=== PATIENT | male | born 1950 | race African-American/Black ===

== ENCOUNTER 2020-06-07 19:51 | IRF | payer MEDICARE, SELFPAY ==
--- NOTE | 2020-06-07 19:47 | ADMGEN ---
This patient, Mikal Francois, was admitted to [facility] Room 222-02 at 1920. Patient/family oriented to hospital policies and general routines including ID bracelet, bed and alarms, visiting hours, pain management, procedures, bathroom and other care routines, personal items, smoking policy, room service/diet, and visiting hours. Information on how to activate the Rapid Response Team has been discussed. Patient/Family are encouraged to report perceived risks to care and to ask questions if they do not understand what they are told or what they should do.
[2020-06-07 20:03] VITALS: BMI 27.7
[2020-06-07 20:23] VITALS: BP 148/81; PULSE 76; RESP 20; TEMP 36.4; O2SAT 100
[2020-06-07 21:52] LABS: Glucose Point of Care 163 (65-105)
[2020-06-07 22:19] VITALS: BMI 27.6
[2020-06-08 05:22] VITALS: BP 168/80; PULSE 59; RESP 18; TEMP 36; O2SAT 100
[2020-06-08 05:37] LABS: Hemoglobin A1C 5.6 % (<5.7)
[2020-06-08 05:39] LABS: Anion Gap 6 mmol/L (8-16); Blood Urea Nitrogen 15 mg/dL (9-20); Calcium 9.3 mg/dL (8.4-10.2); Carbon Dioxide 24 mmol/L (22-30); Chloride 108 mmol/L (98-107); Cholesterol 173 mg/dL (0-200); Estimated CRCL calculation 64 ml/min; Estimated Glomerular Filt Rate > 60; Glucose 114 mg/dL (75-110); HDL Direct 33 mg/dL; Sodium 138 mmol/L (137-145); Triglycerides 118 mg/dL (<150)
[2020-06-08 05:50] LABS: LDL Cholesterol Direct 102 mg/dL
[2020-06-08 06:30] LABS: Basophils Percent Auto 0.5 % (0.2-1.2); Eosinophils Absolute Auto 0.3 K/mm3 (0-0.3); Eosinophils Percent Auto 4.1 % (0-4.4); Hematocrit 38.3 % (42.0-52.0); Hemoglobin 13.2 g/dL (14.0-18.0); Immature Granulocyte Absolute 0.07 K/mm3 (0.00-0.031); Lymphocytes Absolute Auto 1.25 K/mm3 (0.9-3.2); Mean Corpuscular HGB Conc 34.5 g/dl (32-36); Mean Corpuscular Hemoglobin 32.5 pg (26-34); Mean Corpuscular Volume 94.3 fl (80-100); Mean Platelet Volume 12.1 fl (7.4-10.4); Monocytes Absolute Auto 0.8 K/mm3 (0.1-0.6); Monocytes Percent Auto 11.4 % (2.6-8.5); Neutrophils Absolute Auto 4.8 K/mm3 (1.3-6.7); Platelet Count Result 190 k/mm3 (150-375); Red Blood Count 4.06 M/mm3 (4.6-6.20); Red Cell Distribution Width 11.8 % (11.5-14.5); White Blood Count 7.3 K/mm3 (4.5-10.0)
[2020-06-08 06:56] LABS: Glucose Point of Care 113 (65-105)
[2020-06-08 09:28] VITALS: PULSE 68
[2020-06-08] MEDS: ENOXAPARIN 40 MG/0.4 ML SYRINGE SUB-Q (09:28)
[2020-06-08] MEDS: CLOPIDOGREL BISULFATE 75 MG TABLET PO (09:28)
[2020-06-08] MEDS: NEBIVOLOL HCL 5 MG TABLET 10 MG PO (09:28)
[2020-06-08] MEDS: ASPIRIN 325 MG TABLET PO (09:28)
[2020-06-08] MEDS: FINASTERIDE 5 MG TABLET PO (09:35)
[2020-06-08] MEDS: amLODIPine BESYLATE 5 MG TABLET PO (09:35)
[2020-06-08 11:23] VITALS: BMI 27.6
[2020-06-08 12:01] LABS: Glucose Point of Care 141 (65-105)
--- NOTE | 2020-06-08 13:32 | WPDREHABHP ---
H&P: HPI History of Present Illness Date/Time: 06/08/20 13:32 Chief Complaint: Left medial pontine infarct Narrative: this is a 70-year-old male with past medical history significant for cataracts, treated hepatitis-C, prostate cancer, hypertension, diabetes mellitus type 2 presented to the emergency room at [facility] on 06/05/2020 with sudden onset of right leg weakness and bladder incontinence. CT of the head was negative for acute intracranial pathology the patient presented out of the window for tPA. NIH SS was 3 so he was not a thrombectomy candidate. MRI of the brain demonstrated a left medial pontine infarct. Hospital course patient had elevated liver enzymes, hypertension and diabetes. The elevated liver enzymes are being monitored and patient has a GI outpatient referral with Dr Andrea Parker. antihypertensives were held to allow for permissive hypertension. Diabetes was treated with a sliding scale insulin and change to dose of Januvia. Physical exam revealed right hemiplegia right motor apraxia dysarthria right facial droop. Patient was started on aspirin and Plavix. Statin was not initiated due to liver disease/ transaminitis. patient will remain on aspirin and Plavix for 3 weeks and then transition to just aspirin. COVID the patient has not traveled outside the [place] or had contact with someone who is ill that has traveled outside the [place] in the past 21 days patient has not traveled to an area of the [place] that is experiencing known transmission of the Coronavirus and has not had close personal contact with anyone that has come into contact with COVID. The patient does not have a fever. The patient is not experiencing lower respiratory illness symptoms. Therapy was initiated at the acute care facility and the patient transferred to us from [facility] on 06/07/2020 His PCP is Faisal Stephenson HISTORY OF PRESENT ILLNESS: The patient's primary rehab impairment category is 0 1-stroke The etiologic diagnosis is left medial pontine infarct I saw this patient [id number] on 06/08/2020 Therapy was initiated at the acute care facility and the patient transferred to us from [facility] on 06/07/20] FALLS OR SURGERIES: The patient has had no major surgeries in the 100 days prior to admission. They had no falls in the past year. They had no falls with injury in the past year. PRIOR LEVEL OF FUNCTION: Eating was INDEPENDENT Oral Care was INDEPENDENT Toileting Hygiene was INDEPENDENT Shower/Bathing was INDEPENDENT Upper Body Dressing was INDEPENDENT Lower Body Dressing was INDEPENDENT Donning/Lodge Pole Footwear was INDEPENDENT Rolling Left and Right was INDEPENDENT Sit to Lying was INDEPENDENT Lying to Sitting was INDEPENDENT Sit to Stand was INDEPENDENT Bed to Chair Transfers was INDEPENDENT Toilet Transfers was INDEPENDENT Walking was INDEPENDENT >500 feet with NO DEVICE Wheelchair Mobility was NOT APPLICABLE PRIOR TO ADMISSION Stairs were INDEPENDENT CURRENT LEVEL OF FUNCTION: Eating was independent Oral Care was partial to moderate assist Toileting Hygiene was partial to moderate assist Shower/Bathing was partial to moderate assist Upper Body Dressing was partial to moderate assist Lower Body Dressing was partial to moderate assist Donning/Lodge [place] Footwear was partial to moderate assist Rolling Left and Right was partial to moderate assist Sit to Lying was partial to moderate assist Lying to Sitting was partial to moderate assistance Sit to Stand was partial to moderate assistance Bed to Chair Transfers were partial to moderate assistance Toilet Transfers were partial to moderate assistance Walking was 100 ft with a cane at partial to moderate assistance Wheelchair Mobility was not tested Stairs were not tested GOALS: Our therapists will evaluate the patient and establish the goals. However, upon pre-admission screening, the
[2020-06-08 14:00] VITALS: BP 158/76; PULSE 74; RESP 20; TEMP 36.6; O2SAT 99
--- NOTE | 2020-06-08 15:42 | RPD ---
INDIVIDUALIZED PLAN OF CARE FOR Lico Francois Brief Synthesis of Pre-Admission Screen, Post-Admission Evaluation and Therapy Evaluations: The patient presents to rehab with a left medial pontine infarct. Comorbidities include: Hypertension, transaminitis, right-sided weakness, impaired coordination, impaired balance, diabetes mellitus with hyperglycemia. The patient requires physician services for medical oversight, management of medical complications in the setting of present comorbidities, and coordination of care. Emotional needs will be monitored as depression is a common sequelae of stroke. The patient needs physician monitoring and treatment of transaminitis, hypertension, monitoring for adverse reactions to new medications, and monitoring of infection. The patient requires nursing services for frequent neuro checks, anticoagulation therapy, medication management and education, pressure relief and skin care management, monitoring of labs, diabetes management and education, and fall/safety precautions. Deficits include:ADLs, Balance, Endurance, Family Training/Education, Mobility, Pain Management, ROM, Safety, Strength,Transfers, Speech [employer] Lab Technician/Case Management for: Discharge Planning and Patient/Family Counseling Physical Therapy: 5 days per week for 60 minutes for the anticipated length of stay. Treatments may include: Therapeutic Exercise, Gait Training, Neuromuscular Re-education, Transfer Training, Community Reintegration, Bed Mobility, Patient/Family Education, Wheelchair Mobility Group Therapy/Concurrent Therapy Rationales: -Improve attention span during functional activities in a distracted environment. -Enhance problem solving and/or adequate judgment skills during functional activities in a distracted environment. -Promote increased safety awareness in a distracted environment to reduce fall risk with functional tasks, transfers, and ambulation to allow a more safe, self-sufficient return to the home environment. -Improve dynamic balance skills to promote safety and independence with functional activities in a distracted environment for maximum gain. Occupational Therapy: 5 days per week for 60 minutes for the anticipated length of stay. Treatments may include: Therapeutic Exercise, Therapeutic Activity, Cognitive Training, Self-Care Transfer Training, Community Reintegration, Home Management, Patient/Family Education, Wheelchair Mobility Training, Energy Conservation Training Group Therapy/Concurrent Therapy Rationales: -Allow therapist to observe and teach generalization and carry-over of skills learned in individual therapy. -Enhance problem solving and sequencing skills during therapeutic activities in a distracted environment. -Promote increased safety awareness in a realistic setting to reduce fall risk with functional tasks due to visual and verbal distractions. -Increase functional level with ADLs, ADL transfers and use of adaptive equipment through therapeutic activities with others while promoting safety to allow a more safe, self-sufficient return home. Speech Therapy: 5 days per week for 60 minutes for the anticipated length of stay. Treatments may include: Dysphasia Therapy, Speech/Language/Communication Therapy, Cognitive Training, Patient/Family Education Group Therapy/Concurrent Therapy - Rationale: -Allow therapist to observe and teach generalization and carry-over of skills learned in individual therapy. -Improve comprehension skills with complex or abstract ideas through discussion in a realistic setting. -Enhance problem solving skills with complex issues during activities in a distracted environment. -Promote increased memory skills and concentration in a distracted environment for a safe transition home. -Improve attention and focus with language/communication skills in a realistic and supportive therapeutic setting. -Allow for practice of expression of basic needs and ideas through functional activities with others. Medic
[2020-06-08 16:59] LABS: Glucose Point of Care 163 (65-105)
[2020-06-08 20:00] VITALS: PULSE 74; RESP 20; O2SAT 99
[2020-06-08] MEDS: INSULIN ASPART (*BKC) 100 UNITS/ML SUB-Q (21:02)
[2020-06-08 21:04] LABS: Glucose Point of Care 237 (65-105)
[2020-06-08 22:00] VITALS: BP 142/70; PULSE 72; RESP 16; TEMP 36.2; O2SAT 99
[2020-06-09 04:56] VITALS: BP 135/59; PULSE 58; RESP 16; TEMP 36.1; O2SAT 100
[2020-06-09 06:46] LABS: Glucose Point of Care 123 (65-105)
[2020-06-09 09:16] VITALS: PULSE 58
[2020-06-09] MEDS: NEBIVOLOL HCL 5 MG TABLET 10 MG PO (09:16)
[2020-06-09] MEDS: ASPIRIN 325 MG TABLET PO (09:16)
[2020-06-09] MEDS: CLOPIDOGREL BISULFATE 75 MG TABLET PO (09:16)
[2020-06-09] MEDS: amLODIPine BESYLATE 5 MG TABLET PO (09:16)
[2020-06-09] MEDS: ENOXAPARIN 40 MG/0.4 ML SYRINGE SUB-Q (09:16)
[2020-06-09] MEDS: FINASTERIDE 5 MG TABLET PO (09:16)
--- NOTE | 2020-06-09 09:55 | WPDNEURORHBP ---
Subjective Date/time seen: 06/09/20 09:55 Interval history: This is a 70-year-old gentleman with past medical history significant for cataracts, treated hepatitis C, prostate cancer, hypertension, diabetes mellitus type 2 who presented to the emergency room in [facility] on 06/05/2020 with onset of right-sided weakness. MRI of the brain demonstrated a left. GI outpatient referral with Dr. Andrea Parker is to be arranged after discharge. permissive hypertension was allowed during the early stages of stroke. Patient is been newly diagnosed with diabetes. Patient will remain on Plavix and aspirin for 3 weeks and then transition to aspirin alone. Patient voices no complaints. Review of Systems Review of Systems: All systems reviewed & are unremarkable except as noted in HPI and below Functional Status Ambulation Ability Ability to Ambulate 10 Feet: Moderate Assistance X 1 Ability to Ambulate 50 Feet With 2 Turns: Minimum Assistance X 1 Ability to Ambulate 150 Feet: Minimum Assistance X 1 Ambulation Assistive Devices: Cane and Walker, Wheeled Transfers Ability Ability to Transfer In/Out of Chair: Moderate Assistance X 1 Exam Narrative: Exam Narrative: Facial asymmetry is noted extraocular muscles are intact. Neck is supple. Speech is dysarthric. Heart rate and rhythm is regular. Lungs are clear to auscultation. Abdomen is soft nontender. Left upper and left lower extremity strength are 5/5 right upper and right lower extremity strength reveal motor apraxia patient demonstrates cognitive deficits in memory and problem solving. Patient is at Min assistance with transfers. Gait is moderate assistance. Objective Data Vital Signs Vital Signs: Vital Signs - 24 hr 06/08/20 14:00 06/08/20 20:00 06/08/20 22:00 Temperature 36.6 C 36.2 C L Pulse Rate 74 74 72 Respiratory Rate 20 20 16 Blood Pressure 158/76 H 142/70 H Pulse Oximetry 99 99 99 06/09/20 04:56 06/09/20 09:16 Temperature 36.1 C L Pulse Rate 58 L 58 L Respiratory Rate 16 Blood Pressure 135/59 L Pulse Oximetry 100 Intake/Output Intake/Output: Intake & Output 06/06/20 06/07/20 06/08/20 06/09/20 23:59 23:59 23:59 23:59 Intake Total 600 240 Balance 600 240 Meds/Results Medications: Active Medications Generic Name Dose Route Start Last Admin Trade Name Freq PRN Reason Stop Dose Admin Amlodipine Besylate 5 mg 06/08/20 09:00 06/09/20 09:16 Amlodipine Besylate 5 Mg Tablet PO 5 mg DAILY XI Administration Aspirin 325 mg 06/08/20 09:00 06/09/20 09:16 Aspirin 325 Mg Tablet PO 325 mg DAILY XI Administration Clopidogrel Bisulfate 75 mg 06/08/20 09:00 06/09/20 09:16 Clopidogrel Bisulfate 75 Mg Tablet PO 75 mg DAILY XI Administration Dextrose 12.5 gm 06/07/20 20:15 Dextrose 50% 25 Gm/50 Ml Syringe IV PUSH PRN PRN Hypoglycemia Protocol Enoxaparin Sodium 40 mg 06/08/20 09:00 06/09/20 09:16 Enoxaparin 40 Mg/0.4 Ml Syringe SUB-Q 40 mg DAILY XI Administration Finasteride 5 mg 06/08/20 09:00 06/09/20 09:16 Finasteride 5 Mg Tablet PO 5 mg DAILY IX Administration Glucagon 1 mg 06/07/20 20:15 Glucagon For Inj 1 Mg Vial IM PRN PRN Hypoglycemia Protocol Glucose 15 gm 06/07/20 20:15 Glucose Oral Gel 15 Gm Of Glucse In 37.5 Gm Tube PO PRN PRN Hypoglycemia Protocol Dextrose 1,000 mls @ 100 mls/hr 06/07/20 20:15 Dextrose 5% 1,000 Ml IVPB PRN PRN Hypoglycemia Protocol Insulin Aspart 2 - 5 units 06/09/20 08:00 06/09/20 07:33 Insulin Aspart (*Bkc) 100 Units/Ml SUB-Q Not Given TIDWM XI Protocol Nebivolol 10 mg 06/08/20 09:00 06/09/20 09:16 Nebivolol Hcl 5 Mg Tablet PO 10 mg DAILY XI Administration Sitagliptin Phosphate 50 mg 06/08/20 09:00 06/09/20 09:16 Sitagliptin 50 Mg Tablet PO 50 mg DAILY XI Administration Labs Labs: Labora
[2020-06-09 11:11] LABS: Alanine Aminotransferase 313 U/L (4-50); Albumin Level 3.5 g/dL (3.5-5.1); Alkaline Phosphatase 94 U/L (38-126); Anion Gap 5 mmol/L (8-16); Aspartate Amino Transferase 276 U/L (17-59); Bilirubin,Total 0.6 mg/dL (0.2-1.3); Blood Urea Nitrogen 15 mg/dL (9-20); Carbon Dioxide 22 mmol/L (22-30); Chloride 109 mmol/L (98-107); Estimated CRCL calculation 64 ml/min; Estimated Glomerular Filt Rate > 60; Glucose 127 mg/dL (75-110); Potassium 3.9 mmol/L (3.4-5.0); Sodium 136 mmol/L (137-145)
[2020-06-09 12:08] LABS: Glucose Point of Care 117 (65-105)
[2020-06-09 14:00] VITALS: BP 140/67; PULSE 69; RESP 18; TEMP 37.4; O2SAT 100
[2020-06-09 16:51] LABS: Glucose Point of Care 125 (65-105)
[2020-06-09 20:00] VITALS: O2SAT 100
[2020-06-09 21:21] VITALS: BP 139/63; PULSE 62; RESP 18; TEMP 36.1; O2SAT 100
[2020-06-09 21:55] LABS: Glucose Point of Care 121 (65-105)
[2020-06-10 05:42] VITALS: BP 148/79; PULSE 63; RESP 18; TEMP 36.2; O2SAT 100
[2020-06-10 06:41] LABS: Glucose Point of Care 107 (65-105)
[2020-06-10 08:19] VITALS: PULSE 63
[2020-06-10] MEDS: amLODIPine BESYLATE 5 MG TABLET PO (08:19)
[2020-06-10] MEDS: FINASTERIDE 5 MG TABLET PO (08:19)
[2020-06-10] MEDS: NEBIVOLOL HCL 5 MG TABLET 10 MG PO (08:19)
[2020-06-10] MEDS: ASPIRIN 325 MG TABLET PO (08:20)
[2020-06-10] MEDS: ENOXAPARIN 40 MG/0.4 ML SYRINGE SUB-Q (08:20)
[2020-06-10] MEDS: CLOPIDOGREL BISULFATE 75 MG TABLET PO (08:20)
--- NOTE | 2020-06-10 08:26 | WPDNEURORHBP ---
Subjective Date/time seen: 06/10/20 08:26 Interval history: This is a 70-year-old gentleman with past medical history significant for cataracts, treated hepatitis C, prostate cancer, hypertension, diabetes mellitus type 2 who presented to the emergency room in [facility] on 06/05/2020 with onset of right-sided weakness. MRI of the brain demonstrated a left. GI outpatient referral with Dr. Andrea Parker is to be arranged after discharge. permissive hypertension was allowed during the early stages of stroke. Patient is been newly diagnosed with diabetes. Patient will remain on Plavix and aspirin for 3 weeks and then transition to aspirin alone. Patient concerned about diabets. Continue education Review of Systems Review of Systems: All systems reviewed & are unremarkable except as noted in HPI and below Functional Status Ambulation Ability Ability to Ambulate 10 Feet: Minimum Assistance X 1 Ability to Ambulate 50 Feet With 2 Turns: Minimum Assistance X 1 Ability to Ambulate 150 Feet: Minimum Assistance X 1 Ambulation Assistive Devices: Walker, Wheeled Transfers Ability Ability to Transfer In/Out of Chair: Contact Guard Exam Narrative: Exam Narrative: Facial asymmetry is noted extraocular muscles are intact. Neck is supple. Speech is dysarthric. Heart rate and rhythm is regular. Lungs are clear to auscultation. Abdomen is soft nontender. Left upper and left lower extremity strength are 5/5 right upper and right lower extremity strength reveal motor apraxia patient demonstrates cognitive deficits in memory and problem solving. Patient is at Min assistance with transfers. Gait is moderate assistance. Significant motor apraxia noted. Objective Data Vital Signs Vital Signs: Vital Signs - 24 hr 06/09/20 09:16 06/09/20 14:00 06/09/20 20:00 Temperature 37.4 C Pulse Rate 58 L 69 Respiratory Rate 18 Blood Pressure 140/67 Pulse Oximetry 100 100 06/09/20 21:21 06/10/20 05:42 06/10/20 08:19 Temperature 36.1 C L 36.2 C L Pulse Rate 62 63 63 Respiratory Rate 18 18 Blood Pressure 139/63 148/79 H Pulse Oximetry 100 100 Intake/Output Intake/Output: Intake & Output 06/07/20 06/08/20 06/09/20 06/10/20 23:59 23:59 23:59 23:59 Intake Total 600 840 Balance 600 840 Meds/Results Medications: Active Medications Generic Name Dose Route Start Last Admin Trade Name Mukulq PRN Reason Stop Dose Admin Amlodipine Besylate 5 mg 06/08/20 09:00 06/10/20 08:19 Amlodipine Besylate 5 Mg Tablet PO 5 mg DAILY XI Administration Aspirin 325 mg 06/08/20 09:00 06/10/20 08:20 Aspirin 325 Mg Tablet PO 325 mg DAILY XI Administration Clopidogrel Bisulfate 75 mg 06/08/20 09:00 06/10/20 08:20 Clopidogrel Bisulfate 75 Mg Tablet PO 75 mg DAILY XI Administration Dextrose 12.5 gm 06/07/20 20:15 Dextrose 50% 25 Gm/50 Ml Syringe IV PUSH PRN PRN Hypoglycemia Protocol Enoxaparin Sodium 40 mg 06/08/20 09:00 06/10/20 08:20 Enoxaparin 40 Mg/0.4 Ml Syringe SUB-Q 40 mg DAILY XI Administration Finasteride 5 mg 06/08/20 09:00 06/10/20 08:19 Finasteride 5 Mg Tablet PO 5 mg DAILY XI Administration Glucagon 1 mg 06/07/20 20:15 Glucagon For Inj 1 Mg Vial IM PRN PRN Hypoglycemia Protocol Glucose 15 gm 06/07/20 20:15 Glucose Oral Gel 15 Gm Of Glucse In 37.5 Gm Tube PO PRN PRN Hypoglycemia Protocol Dextrose 1,000 mls @ 100 mls/hr 06/07/20 20:15 Dextrose 5% 1,000 Ml IVPB PRN PRN Hypoglycemia Protocol Insulin Aspart 2 - 5 units 06/09/20 08:00 06/10/20 08:21 Insulin Aspart (*Bkc) 100 Units/Ml SUB-Q Not Given TIDWM XI Protocol Nebivolol 10 mg 06/08/20 09:00 06/10/20 08:19 Nebivolol Hcl 5 Mg Tablet PO 10 mg DAILY XI Administration Sitagliptin Phosphate 50 mg 06/08/20 09:00 06/10/20 08:20 Sitagliptin 50 Mg Tablet PO 50 mg
[2020-06-10 12:00] LABS: Glucose Point of Care 94 (65-105)
[2020-06-10 14:00] VITALS: BP 120/63; PULSE 74; RESP 18; TEMP 35.8; O2SAT 100
[2020-06-10 17:09] LABS: Glucose Point of Care 124 (65-105)
[2020-06-10 20:16] LABS: Glucose Point of Care 157 (65-105)
[2020-06-10 22:00] VITALS: BP 134/64; PULSE 68; RESP 16; TEMP 36.3; O2SAT 99
[2020-06-11 06:00] VITALS: BP 147/68; PULSE 58; RESP 16; TEMP 36.1; O2SAT 100
[2020-06-11 06:17] LABS: Glucose Point of Care 110 (65-105)
[2020-06-11] MEDS: ASPIRIN 325 MG TABLET PO (08:49)
[2020-06-11] MEDS: amLODIPine BESYLATE 5 MG TABLET PO (08:49)
[2020-06-11 08:50] VITALS: PULSE 68
[2020-06-11] MEDS: CLOPIDOGREL BISULFATE 75 MG TABLET PO (08:50)
[2020-06-11] MEDS: NEBIVOLOL HCL 5 MG TABLET 10 MG PO (08:50)
[2020-06-11] MEDS: FINASTERIDE 5 MG TABLET PO (08:50)
[2020-06-11] MEDS: ENOXAPARIN 40 MG/0.4 ML SYRINGE SUB-Q (08:51)
[2020-06-11 09:05] VITALS: O2SAT 95
--- NOTE | 2020-06-11 10:59 | WPDNEURORHBP ---
Subjective Date/time seen: 06/11/20 10:59 Interval history: This is a 70-year-old gentleman with past medical history significant for cataracts, treated hepatitis C, prostate cancer, hypertension, diabetes mellitus type 2 who presented to the emergency room in [facility] on 06/05/2020 with onset of right-sided weakness. MRI of the brain demonstrated a left. GI outpatient referral with Dr. Andrea Parker is to be arranged after discharge. permissive hypertension was allowed during the early stages of stroke. Patient is been newly diagnosed with diabetes. Patient will remain on Plavix and aspirin for 3 weeks and then transition to aspirin alone. Patient concerned about diabetes. Continue education Review of Systems Review of Systems: All systems reviewed & are unremarkable except as noted in HPI and below Functional Status Ambulation Ability Ability to Ambulate 10 Feet: Contact Guard Ability to Ambulate 50 Feet With 2 Turns: Contact Guard Ability to Ambulate 150 Feet: Contact Guard Ambulation Assistive Devices: Walker, Wheeled Transfers Ability Ability to Transfer In/Out of Chair: Minimum Assistance X 1 Exam Narrative: Exam Narrative: Facial asymmetry is noted extraocular muscles are intact. Neck is supple. Speech is dysarthric. Heart rate and rhythm is regular. Lungs are clear to auscultation. Abdomen is soft nontender. Left upper and left lower extremity strength are 5/5 right upper and right lower extremity strength reveal motor apraxia patient demonstrates cognitive deficits in memory and problem solving. Patient is at Min assistance with transfers. Gait is contact guard assistance. Patient hyperextends the L knee. Poor control of quads when walking. Significant motor apraxia noted. Objective Data Vital Signs Vital Signs: Vital Signs - 24 hr 06/10/20 14:00 06/10/20 22:00 06/11/20 06:00 Temperature 35.8 C L 36.3 C L 36.1 C L Pulse Rate 74 68 58 L Respiratory Rate 18 16 16 Blood Pressure 120/63 134/64 147/68 H Pulse Oximetry 100 99 100 06/11/20 08:50 Temperature Pulse Rate 68 Respiratory Rate Blood Pressure Pulse Oximetry Intake/Output Intake/Output: Intake & Output 06/08/20 06/09/20 06/10/20 06/11/20 23:59 23:59 23:59 23:59 Intake Total 361 986 4896 Balance 352 341 5008 Meds/Results Medications: Active Medications Generic Name Dose Route Start Last Admin Trade Name Mukulq PRN Reason Stop Dose Admin Amlodipine Besylate 5 mg 06/08/20 09:00 06/11/20 08:49 Amlodipine Besylate 5 Mg Tablet PO 5 mg DAILY XI Administration Aspirin 325 mg 06/08/20 09:00 06/11/20 08:49 Aspirin 325 Mg Tablet PO 325 mg DAILY XI Administration Clopidogrel Bisulfate 75 mg 06/08/20 09:00 06/11/20 08:50 Clopidogrel Bisulfate 75 Mg Tablet PO 75 mg DAILY XI Administration Dextrose 12.5 gm 06/07/20 20:15 Dextrose 50% 25 Gm/50 Ml Syringe IV PUSH PRN PRN Hypoglycemia Protocol Enoxaparin Sodium 40 mg 06/08/20 09:00 06/11/20 08:51 Enoxaparin 40 Mg/0.4 Ml Syringe SUB-Q 40 mg DAILY XI Administration Finasteride 5 mg 06/08/20 09:00 06/11/20 08:50 Finasteride 5 Mg Tablet PO 5 mg DAILY XI Administration Glucagon 1 mg 06/07/20 20:15 Glucagon For Inj 1 Mg Vial IM PRN PRN Hypoglycemia Protocol Glucose 15 gm 06/07/20 20:15 Glucose Oral Gel 15 Gm Of Glucse In 37.5 Gm Tube PO PRN PRN Hypoglycemia Protocol Dextrose 1,000 mls @ 100 mls/hr 06/07/20 20:15 Dextrose 5% 1,000 Ml IVPB PRN PRN Hypoglycemia Protocol Insulin Aspart 2 - 5 units 06/09/20 08:00 06/11/20 08:50 Insulin Aspart (*Bkc) 100 Units/Ml SUB-Q Not Given TIDWM XI Protocol Nebivolol 10 mg 06/08/20 09:00 06/11/20 08:50 Nebivolol Hcl 5 Mg Tablet PO 10 mg DAILY XI Administration Sitagliptin Phosphate 50 mg 06/08/20 09:00 06/11/20 08:50 Sitagliptin 50 Mg
[2020-06-11 11:48] LABS: Glucose Point of Care 95 (65-105)
[2020-06-11 14:00] VITALS: BP 128/61; PULSE 72; RESP 18; TEMP 36.1; O2SAT 99
[2020-06-11 17:16] LABS: Glucose Point of Care 109 (65-105)
[2020-06-11 20:15] VITALS: PULSE 63; RESP 16; O2SAT 100
[2020-06-11 21:08] LABS: Glucose Point of Care 149 (65-105)
[2020-06-11 22:00] VITALS: BP 147/71; PULSE 63; RESP 16; TEMP 36.1; O2SAT 100
[2020-06-12 06:00] VITALS: BP 144/70; PULSE 56; RESP 16; TEMP 36; O2SAT 100
[2020-06-12 06:00] LABS: Glucose Point of Care 99 (65-105)
[2020-06-12 09:20] VITALS: PULSE 56
[2020-06-12] MEDS: amLODIPine BESYLATE 5 MG TABLET PO (09:20)
[2020-06-12] MEDS: FINASTERIDE 5 MG TABLET PO (09:20)
[2020-06-12] MEDS: CLOPIDOGREL BISULFATE 75 MG TABLET PO (09:20)
[2020-06-12] MEDS: NEBIVOLOL HCL 5 MG TABLET 10 MG PO (09:20)
[2020-06-12] MEDS: ASPIRIN 325 MG TABLET PO (09:20)
[2020-06-12] MEDS: ENOXAPARIN 40 MG/0.4 ML SYRINGE SUB-Q (09:21)
[2020-06-12 12:03] LABS: Glucose Point of Care 91 (65-105)
--- NOTE | 2020-06-12 12:53 | WPDNEURORHBP ---
Subjective Date/time seen: 06/12/20 12:53 Interval history: This is a 70-year-old gentleman with past medical history significant for cataracts, treated hepatitis C, prostate cancer, hypertension, diabetes mellitus type 2 who presented to the emergency room in [facility] on 06/05/2020 with onset of right-sided weakness. MRI of the brain demonstrated a left. GI outpatient referral with Dr. Andrea Parker is to be arranged after discharge due to transaminitis.Permissive hypertension will be allowed during the early stages of stroke. Patient is a newly diagnosed diabetic. Diabetic training will be ongoing Patient will remain on Plavix and aspirin for 3 weeks and then transition to aspirin alone. Patient voices no complaint. Patient is becoming more aware of his limitation Review of Systems Review of Systems: All systems reviewed & are unremarkable except as noted in HPI and below Functional Status Ambulation Ability Ability to Ambulate 10 Feet: Contact Guard Ability to Ambulate 50 Feet With 2 Turns: Contact Guard Ability to Ambulate 150 Feet: Contact Guard Ambulation Assistive Devices: Walker, Wheeled Transfers Ability Ability to Transfer In/Out of Chair: Contact Guard Exam Narrative: Exam Narrative: Facial asymmetry is noted extraocular muscles are intact. Neck is supple. Speech is dysarthric. Heart rate and rhythm is regular. Lungs are clear to auscultation. Abdomen is soft nontender. Left upper and left lower extremity strength are 4/5 right upper and right lower extremity strength reveal motor apraxia patient demonstrates cognitive deficits in memory and problem solving. Patient is at Min assistance with transfers. Gait is contact guard assistance. Patient hyperextends the L knee. Poor control of quads when walking due to L TKA. Patient with Right hemiplegia 3-4/5 strength throughout. Significant motor apraxia noted. patient is modified independent to standby assistance with bed mobility. Transfers are contact guard assist. Gait is 230 ft with contact guard patient demonstrates left knee hyperextension. Dressing is at contact guard for upper ADLs. Lower extremity ADLs are Min assist. bathing is contact guard assist. Toileting is contact guard to minimal assistance. Speech demonstrates moderate deficits in fluency and reading. With mild to moderate cognitive global deficits. Objective Data Vital Signs Vital Signs: Vital Signs - 24 hr 06/11/20 14:00 06/11/20 20:15 06/11/20 22:00 Temperature 36.1 C L 36.1 C L Pulse Rate 72 63 63 Respiratory Rate 18 16 16 Blood Pressure 128/61 147/71 H Pulse Oximetry 99 100 100 06/12/20 06:00 06/12/20 09:20 Temperature 36.0 C L Pulse Rate 56 L 56 L Respiratory Rate 16 Blood Pressure 144/70 H Pulse Oximetry 100 Intake/Output Intake/Output: Intake & Output 06/09/20 06/10/20 06/11/20 06/12/20 23:59 23:59 23:59 23:59 Intake Total 840 1440 720 240 Balance 840 1440 720 240 Meds/Results Medications: Active Medications Generic Name Dose Route Start Last Admin Trade Name Freq PRN Reason Stop Dose Admin Amlodipine Besylate 5 mg 06/08/20 09:00 06/12/20 09:20 Amlodipine Besylate 5 Mg Tablet PO 5 mg DAILY XI Administration Aspirin 325 mg 06/08/20 09:00 06/12/20 09:20 Aspirin 325 Mg Tablet PO 325 mg DAILY XI Administration Clopidogrel Bisulfate 75 mg 06/08/20 09:00 06/12/20 09:20 Clopidogrel Bisulfate 75 Mg Tablet PO 75 mg DAILY XI Administration Dextrose 12.5 gm 06/07/20 20:15 Dextrose 50% 25 Gm/50 Ml Syringe IV PUSH PRN PRN Hypoglycemia Protocol Enoxaparin Sodium 40 mg 06/08/20 09:00 06/12/20 09:21 Enoxaparin 40 Mg/0.4 Ml Syringe SUB-Q 40 mg DAILY XI Administration Finasteride 5 mg 06/08/20 09:00 06/12/20 09:20 Finasteride 5 Mg Tablet PO 5 mg DAILY XI Administration Glucagon 1 mg 06/07/20 20:15 Glucagon For Inj 1 Mg Vial IM PRN PRN
[2020-06-12 14:00] VITALS: BP 150/69; PULSE 76; RESP 18; TEMP 36.2; O2SAT 100
[2020-06-12 16:53] LABS: Glucose Point of Care 103 (65-105)
[2020-06-12 20:10] VITALS: PULSE 69; RESP 16; O2SAT 100
[2020-06-12 22:00] VITALS: BP 137/64; PULSE 69; RESP 16; TEMP 36.9; O2SAT 100
[2020-06-12 22:03] LABS: Glucose Point of Care 189 (65-105)
[2020-06-13 06:00] VITALS: BP 146/74; PULSE 62; RESP 16; TEMP 36; O2SAT 100
[2020-06-13 06:58] LABS: Glucose Point of Care 107 (65-105)
[2020-06-13 08:38] VITALS: PULSE 62
[2020-06-13] MEDS: ENOXAPARIN 40 MG/0.4 ML SYRINGE SUB-Q (08:38)
[2020-06-13] MEDS: amLODIPine BESYLATE 5 MG TABLET PO (08:38)
[2020-06-13] MEDS: ASPIRIN 325 MG TABLET PO (08:38)
[2020-06-13] MEDS: CLOPIDOGREL BISULFATE 75 MG TABLET PO (08:38)
[2020-06-13] MEDS: NEBIVOLOL HCL 5 MG TABLET 10 MG PO (08:38)
[2020-06-13] MEDS: FINASTERIDE 5 MG TABLET PO (08:38)
--- NOTE | 2020-06-13 09:10 | WPDNEURORHBP ---
Subjective Date/time seen: 06/13/20 09:10 Interval history: This is a 70-year-old gentleman with past medical history significant for cataracts, treated hepatitis C, prostate cancer, hypertension, diabetes mellitus type 2 who presented to the emergency room in [facility] on 06/05/2020 with onset of right-sided weakness. MRI of the brain demonstrated a left. GI outpatient referral with Dr. Andrea Parker is to be arranged after discharge due to transaminitis.Permissive hypertension will be allowed during the early stages of stroke. Patient is a newly diagnosed diabetic. Diabetic training will be ongoing Patient will remain on Plavix and aspirin for 3 weeks and then transition to aspirin alone. Patient voices no complaint. Patient is becoming more aware of his limitation Review of Systems Review of Systems: All systems reviewed & are unremarkable except as noted in HPI and below Functional Status Ambulation Ability Ability to Ambulate 10 Feet: Contact Guard Ability to Ambulate 50 Feet With 2 Turns: Contact Guard Ability to Ambulate 150 Feet: Contact Guard Ambulation Assistive Devices: Walker, Wheeled Transfers Ability Ability to Transfer In/Out of Chair: Contact Guard Exam Narrative: Exam Narrative: Facial asymmetry is noted extraocular muscles are intact. Neck is supple. Speech is dysarthric. Heart rate and rhythm is regular. Lungs are clear to auscultation. Abdomen is soft nontender. Left upper and left lower extremity strength are 4/5 right upper and right lower extremity strength reveal motor apraxia patient demonstrates cognitive deficits in memory and problem solving. Patient is at Min assistance with transfers. Gait is contact guard assistance. Patient hyperextends the L knee. Poor control of quads when walking due to L TKA. Patient with Right hemiplegia 3-4/5 strength throughout. Significant motor apraxia noted. patient is modified independent to standby assistance with bed mobility. Transfers are contact guard assist. Gait is 230 ft with contact guard patient demonstrates left knee hyperextension. Dressing is at contact guard for upper ADLs. Lower extremity ADLs are Min assist. bathing is contact guard assist. Toileting is contact guard to minimal assistance. Speech demonstrates moderate deficits in fluency and reading. With mild to moderate cognitive global deficits. Patient demonstrating more awareness of right hand placement. Patient's overall grasp is limited and showing signs of motor recovery. Motor recovery is improving more to proximal ms. Objective Data Vital Signs Vital Signs: Vital Signs - 24 hr 06/12/20 09:20 06/12/20 14:00 06/12/20 20:10 Temperature 36.2 C L Pulse Rate 56 L 76 69 Respiratory Rate 18 16 Blood Pressure 150/69 H Pulse Oximetry 100 100 06/12/20 22:00 06/13/20 06:00 06/13/20 08:38 Temperature 36.9 C 36.0 C L Pulse Rate 69 62 62 Respiratory Rate 16 16 Blood Pressure 137/64 146/74 H Pulse Oximetry 100 100 Intake/Output Intake/Output: Intake & Output 06/10/20 06/11/20 06/12/20 06/13/20 23:59 23:59 23:59 23:59 Intake Total 1440 720 960 240 Balance 1440 720 960 240 Meds/Results Medications: Active Medications Generic Name Dose Route Start Last Admin Trade Name Freq PRN Reason Stop Dose Admin Amlodipine Besylate 5 mg 06/08/20 09:00 06/13/20 08:38 Amlodipine Besylate 5 Mg Tablet PO 5 mg DAILY XI Administration Aspirin 325 mg 06/08/20 09:00 06/13/20 08:38 Aspirin 325 Mg Tablet PO 325 mg DAILY XI Administration Clopidogrel Bisulfate 75 mg 06/08/20 09:00 06/13/20 08:38 Clopidogrel Bisulfate 75 Mg Tablet PO 75 mg DAILY XI Administration Dextrose 12.5 gm 06/07/20 20:15 Dextrose 50% 25 Gm/50 Ml Syringe IV PUSH PRN PRN Hypoglycemia Protocol Enoxaparin Sodium 40 mg 06/08/20 09:00 06/13/20 08:38 Enoxaparin 40 Mg/0.4 Ml Syringe SUB-Q 40 mg DAILY XI Administra
[2020-06-13 11:55] LABS: Glucose Point of Care 92 (65-105)
[2020-06-13 14:00] VITALS: BP 117/57; PULSE 65; RESP 18; TEMP 36.4; O2SAT 98
[2020-06-13 18:13] LABS: Glucose Point of Care 85 (65-105)
[2020-06-13 20:10] VITALS: PULSE 72; RESP 16; O2SAT 98
[2020-06-13 21:51] VITALS: BP 146/90; PULSE 72; RESP 16; TEMP 36.2; O2SAT 98
[2020-06-13 22:11] LABS: Glucose Point of Care 84 (65-105)
[2020-06-14 05:47] VITALS: BP 138/62; PULSE 70; RESP 16; TEMP 35.9; O2SAT 99
[2020-06-14 06:33] LABS: Glucose Point of Care 101 (65-105)
[2020-06-14] MEDS: amLODIPine BESYLATE 5 MG TABLET PO (08:50)
[2020-06-14 08:53] VITALS: PULSE 70
[2020-06-14] MEDS: ASPIRIN 325 MG TABLET PO (08:53)
[2020-06-14] MEDS: FINASTERIDE 5 MG TABLET PO (08:53)
[2020-06-14] MEDS: CLOPIDOGREL BISULFATE 75 MG TABLET PO (08:53)
[2020-06-14] MEDS: NEBIVOLOL HCL 5 MG TABLET 10 MG PO (08:53)
[2020-06-14] MEDS: ENOXAPARIN 40 MG/0.4 ML SYRINGE SUB-Q (08:54)
[2020-06-14 11:43] LABS: Glucose Point of Care 110 (65-105)
[2020-06-14 14:00] VITALS: BP 132/64; PULSE 78; RESP 20; TEMP 36.3; O2SAT 99
--- NOTE | 2020-06-14 14:40 | WPDNEURORHBP ---
Subjective Date/time seen: 06/14/20 14:40 Interval history: This is a 70-year-old gentleman with past medical history significant for cataracts, treated hepatitis C, prostate cancer, hypertension, diabetes mellitus type 2 who presented to the emergency room in [facility] on 06/05/2020 with onset of right-sided weakness. MRI of the brain demonstrated a left medial pontine infarct. GI outpatient referral with Dr. Andrea Parker is to be arranged after discharge due to transaminitis.Permissive hypertension will be allowed during the early stages of stroke. Patient is a newly diagnosed diabetic. Diabetic training will be ongoing Patient will remain on Plavix and aspirin for 3 weeks and then transition to aspirin alone. Patient voices no complaint. Patient is becoming more aware of his limitation Brother and [id number] present for training today. Review of Systems Review of Systems: All systems reviewed & are unremarkable except as noted in HPI and below Functional Status Ambulation Ability Ability to Ambulate 10 Feet: Standby Assistance Ability to Ambulate 50 Feet With 2 Turns: Standby Assistance Ability to Ambulate 150 Feet: Standby Assistance Ambulation Assistive Devices: Walker, Wheeled Transfers Ability Ability to Transfer In/Out of Chair: Independent Exam Narrative: Exam Narrative: Facial asymmetry is noted extraocular muscles are intact. Neck is supple. Speech is dysarthric. Heart rate and rhythm is regular. Lungs are clear to auscultation. Abdomen is soft nontender. Left upper and left lower extremity strength are 4/5 right upper and right lower extremity strength reveal motor apraxia patient demonstrates cognitive deficits in memory and problem solving. . Gait is contact guard assistance. Patient hyperextends the L knee. Poor control of quads when walking due to L TKA. Patient with Right hemiplegia 3-4/5 strength throughout. Significant motor apraxia noted. . Dressing is at contact guard for upper ADLs. Lower extremity ADLs are Min assist. bathing is contact guard assist. Toileting is contact guard to minimal assistance. Speech demonstrates moderate deficits in fluency and reading. With mild to moderate cognitive global deficits. Patient demonstrating more awareness of right hand placement. Patient's overall grasp is limited and showing signs of motor recovery. Motor recovery is improving more to proximal ms. Objective Data Vital Signs Vital Signs: Vital Signs - 24 hr 06/13/20 20:10 06/13/20 21:51 06/14/20 05:47 Temperature 36.2 C L 35.9 C L Pulse Rate 72 72 70 Respiratory Rate 16 16 16 Blood Pressure 146/90 H 138/62 Pulse Oximetry 98 98 99 06/14/20 08:53 Temperature Pulse Rate 70 Respiratory Rate Blood Pressure Pulse Oximetry Intake/Output Intake/Output: Intake & Output 06/11/20 06/12/20 06/13/20 06/14/20 23:59 23:59 23:59 23:59 Intake Total 720 960 720 480 Balance 720 960 720 480 Meds/Results Medications: Active Medications Generic Name Dose Route Start Last Admin Trade Name Freq PRN Reason Stop Dose Admin Amlodipine Besylate 5 mg 06/08/20 09:00 06/14/20 08:50 Amlodipine Besylate 5 Mg Tablet PO 5 mg DAILY XI Administration Aspirin 325 mg 06/08/20 09:00 06/14/20 08:53 Aspirin 325 Mg Tablet PO 325 mg DAILY XI Administration Clopidogrel Bisulfate 75 mg 06/08/20 09:00 06/14/20 08:53 Clopidogrel Bisulfate 75 Mg Tablet PO 75 mg DAILY XI Administration Dextrose 12.5 gm 06/07/20 20:15 Dextrose 50% 25 Gm/50 Ml Syringe IV PUSH PRN PRN Hypoglycemia Protocol Enoxaparin Sodium 40 mg 06/08/20 09:00 06/14/20 08:54 Enoxaparin 40 Mg/0.4 Ml Syringe SUB-Q 40 mg DAILY XI Administration Finasteride 5 mg 06/08/20 09:00 06/14/20 08:53 Finasteride 5 Mg Tablet PO 5 mg DAILY XI Administration Glucagon 1 mg 06/07/20 20:15 Glucagon For Inj 1 Mg Vial IM PRN PRN Hypo
[2020-06-14 17:22] LABS: Glucose Point of Care 104 (65-105)
[2020-06-14 19:45] VITALS: PULSE 84; RESP 16; O2SAT 100
[2020-06-14 20:10] VITALS: BP 133/75; PULSE 84; RESP 16; TEMP 36.3; O2SAT 100
[2020-06-14 20:25] LABS: Glucose Point of Care 125 (65-105)
[2020-06-15 05:12] LABS: Basophils Percent Auto 0.5 % (0.2-1.2); Eosinophils Absolute Auto 0.3 K/mm3 (0-0.3); Eosinophils Percent Auto 3.8 % (0-4.4); Hematocrit 39.3 % (42.0-52.0); Hemoglobin 13.4 g/dL (14.0-18.0); Immature Granulocyte Absolute 0.08 K/mm3 (0.00-0.031); Immature Granulocyte Percent A 1.2 % (0-0.5); Lymphocytes Absolute Auto 1.09 K/mm3 (0.9-3.2); Lymphocytes Percent Auto 16.7 % (18.3-44.2); Mean Corpuscular HGB Conc 34.1 g/dl (32-36); Mean Corpuscular Hemoglobin 32.4 pg (26-34); Mean Corpuscular Volume 95.2 fl (80-100); Monocytes Absolute Auto 0.8 K/mm3 (0.1-0.6); Monocytes Percent Auto 11.5 % (2.6-8.5); Neutrophils Absolute Auto 4.3 K/mm3 (1.3-6.7); Neutrophils Percent Auto 66.3 % (45.5-73.1); Platelet Count Result 185 k/mm3 (150-375); Red Blood Count 4.13 M/mm3 (4.6-6.20); Red Cell Distribution Width 11.6 % (11.5-14.5); White Blood Count 6.5 K/mm3 (4.5-10.0)
[2020-06-15 05:17] VITALS: BP 140/75; PULSE 80; RESP 20; TEMP 36.2; O2SAT 96
[2020-06-15 05:33] LABS: Anion Gap 6 mmol/L (8-16); Blood Urea Nitrogen 14 mg/dL (9-20); Calcium 9.4 mg/dL (8.4-10.2); Carbon Dioxide 25 mmol/L (22-30); Chloride 107 mmol/L (98-107); Estimated CRCL calculation 64 ml/min; Estimated Glomerular Filt Rate > 60; Glucose 112 mg/dL (75-110); Potassium 4.2 mmol/L (3.4-5.0); Sodium 138 mmol/L (137-145)
[2020-06-15 07:09] LABS: Glucose Point of Care 95 (65-105)
[2020-06-15 08:38] VITALS: PULSE 82
[2020-06-15] MEDS: CLOPIDOGREL BISULFATE 75 MG TABLET PO (08:38)
[2020-06-15] MEDS: amLODIPine BESYLATE 5 MG TABLET PO (08:38)
[2020-06-15] MEDS: ASPIRIN 325 MG TABLET PO (08:38)
[2020-06-15] MEDS: ENOXAPARIN 40 MG/0.4 ML SYRINGE SUB-Q (08:38)
[2020-06-15] MEDS: NEBIVOLOL HCL 5 MG TABLET 10 MG PO (08:38)
[2020-06-15] MEDS: FINASTERIDE 5 MG TABLET PO (08:38)
[2020-06-15 11:06] LABS: Glucose Point of Care 112 (65-105)
--- NOTE | 2020-06-15 13:09 | PCNFU ---
Nutrition Follow-Up Complete: No nutrition diagnosis at this time. Goal: Patient to consume 75% of meals or greater. Patient is meeting current goal consuming 100% of meals. Pt current nutrition is a diabetic consistent carbohydrate diet. Last recorded weight is 75.2 kg. Recommend re-weighing patient. Bowel Motility: + BM 06/14 Labs Reviewed: Hgb 13.4, Hct 39.3, Glu 112 Meds Noted: Norvasc, Plavix, Lovenox, Proscar, Januvia, Bystolic Additional Notes: Followed up with patient. Patient reports having a great appetite. His only complaint was not having enough food. He has been consistently consuming 100% of meals. He had no nutritional questions or concerns. Follow up in 7 days.
--- NOTE | 2020-06-15 13:20 | PCNSR ---
On 06/15/20, the student, Korin Morin, provided care and completed [facility] documentation on this patient. I have reviewed the student's documentation and agree with the findings.
[2020-06-15 14:00] VITALS: BP 115/59; PULSE 73; RESP 14; TEMP 35.8; O2SAT 99
[2020-06-15 14:45] VITALS: BMI 27.6
[2020-06-15 16:44] LABS: Glucose Point of Care 95 (65-105)
[2020-06-15 22:00] VITALS: BP 121/53; PULSE 76; RESP 16; TEMP 36.2; O2SAT 97
[2020-06-15 22:07] LABS: Glucose Point of Care 172 (65-105)
[2020-06-16 05:21] VITALS: BP 135/57; PULSE 60; RESP 16; TEMP 36; O2SAT 98
[2020-06-16 06:37] LABS: Glucose Point of Care 125 (65-105)
[2020-06-16 08:34] VITALS: PULSE 62
[2020-06-16] MEDS: ASPIRIN 325 MG TABLET PO (08:34)
[2020-06-16] MEDS: NEBIVOLOL HCL 5 MG TABLET 10 MG PO (08:34)
[2020-06-16] MEDS: ENOXAPARIN 40 MG/0.4 ML SYRINGE SUB-Q (08:34)
[2020-06-16] MEDS: amLODIPine BESYLATE 5 MG TABLET PO (08:34)
[2020-06-16] MEDS: FINASTERIDE 5 MG TABLET PO (08:34)
[2020-06-16] MEDS: CLOPIDOGREL BISULFATE 75 MG TABLET PO (08:34)
--- NOTE | 2020-06-16 10:06 | WPDNEURORHBP ---
Subjective Date/time seen: 06/16/20 10:06 Interval history: This is a 70-year-old gentleman with past medical history significant for cataracts, treated hepatitis C, prostate cancer, hypertension, diabetes mellitus type 2 who presented to the emergency room in [facility] on 06/05/2020 with onset of right-sided weakness. MRI of the brain demonstrated a left medial pontine infarct. GI outpatient referral with Dr. Andrea Parker is to be arranged after discharge due to transaminitis.Permissive hypertension will be allowed during the early stages of stroke. Patient is a newly diagnosed diabetic. Diabetic training will be ongoing Patient will remain on Plavix and aspirin for 3 weeks and then transition to aspirin alone. Patient voices no complaint. Patient is becoming more aware of his limitation Brother and [id number] present for training today. Review of Systems Review of Systems: All systems reviewed & are unremarkable except as noted in HPI and below Functional Status Ambulation Ability Ability to Ambulate 10 Feet: Independent Ability to Ambulate 50 Feet With 2 Turns: Independent Ability to Ambulate 150 Feet: Standby Assistance Ambulation Assistive Devices: Walker, Wheeled Transfers Ability Ability to Transfer In/Out of Chair: Independent Exam Narrative: Exam Narrative: Facial asymmetry is noted extraocular muscles are intact. Neck is supple. Speech is dysarthric. Heart rate and rhythm is regular. Lungs are clear to auscultation. Abdomen is soft nontender. Left upper and left lower extremity strength are 4/5 right upper and right lower extremity strength reveal motor apraxia Right primary special educator strength is improving patient demonstrates cognitive deficits in memory and problem solving . Progress is noted. . Gait is contact guard assistance. Patient hyperextends the L knee. Poor control of quads when walking due to L TKA. Patient with Right hemiplegia 3-4/5 strength throughout. More overall control of motor present . Dressing is at contact guard for upper ADLs. Lower extremity ADLs are Min assist. bathing is contact guard assist. Toileting is contact guard to minimal assistance. Speech demonstrates moderate deficits in fluency and reading. With mild to moderate cognitive global deficits. Patient demonstrating more awareness of right hand placement. Patient's overall grasp is limited and showing signs of motor recovery. Motor recovery is improving more to proximal ms. Objective Data Vital Signs Vital Signs: Vital Signs - 24 hr 06/15/20 14:00 06/15/20 22:00 06/16/20 05:21 Temperature 35.8 C L 36.2 C L 36.0 C L Pulse Rate 73 76 60 Respiratory Rate 14 16 16 Blood Pressure 115/59 L 121/53 L 135/57 L Pulse Oximetry 99 97 98 06/16/20 08:34 Temperature Pulse Rate 62 Respiratory Rate Blood Pressure Pulse Oximetry Intake/Output Intake/Output: Intake & Output 06/13/20 06/14/20 06/15/20 06/16/20 23:59 23:59 23:59 23:59 Intake Total 720 720 940 240 Balance 720 720 940 240 Meds/Results Medications: Active Medications Generic Name Dose Route Start Last Admin Trade Name Freq PRN Reason Stop Dose Admin Amlodipine Besylate 5 mg 06/08/20 09:00 06/16/20 08:34 Amlodipine Besylate 5 Mg Tablet PO 5 mg DAILY XI Administration Aspirin 325 mg 06/08/20 09:00 06/16/20 08:34 Aspirin 325 Mg Tablet PO 325 mg DAILY XI Administration Clopidogrel Bisulfate 75 mg 06/08/20 09:00 06/16/20 08:34 Clopidogrel Bisulfate 75 Mg Tablet PO 75 mg DAILY XI Administration Dextrose 12.5 gm 06/07/20 20:15 Dextrose 50% 25 Gm/50 Ml Syringe IV PUSH PRN PRN Hypoglycemia Protocol Enoxaparin Sodium 40 mg 06/08/20 09:00 06/16/20 08:34 Enoxaparin 40 Mg/0.4 Ml Syringe SUB-Q 40 mg DAILY XI Administration Finasteride 5 mg 06/08/20 09:00 06/16/20 08:34 Finasteride 5 Mg Tablet PO 5 mg DAILY XI Administration Glucagon 1 mg 06/07/20
[2020-06-16 11:36] LABS: Glucose Point of Care 93 (65-105)
[2020-06-16 14:00] VITALS: BP 132/59; PULSE 67; RESP 18; TEMP 36.6; O2SAT 99
[2020-06-16 16:51] LABS: Glucose Point of Care 101 (65-105)
[2020-06-16 20:53] VITALS: BP 130/57; PULSE 58; RESP 20; TEMP 36.1; O2SAT 100
[2020-06-16 21:09] LABS: Glucose Point of Care 116 (65-105)
[2020-06-17 05:38] VITALS: BP 130/69; PULSE 56; RESP 18; TEMP 35.9; O2SAT 100
[2020-06-17 08:13] LABS: Glucose Point of Care 86 (65-105)
[2020-06-17 09:18] VITALS: PULSE 60
[2020-06-17] MEDS: FINASTERIDE 5 MG TABLET PO (09:18)
[2020-06-17] MEDS: ASPIRIN 325 MG TABLET PO (09:18)
[2020-06-17] MEDS: CLOPIDOGREL BISULFATE 75 MG TABLET PO (09:18)
[2020-06-17] MEDS: NEBIVOLOL HCL 5 MG TABLET 10 MG PO (09:18)
[2020-06-17] MEDS: ENOXAPARIN 40 MG/0.4 ML SYRINGE SUB-Q (09:18)
[2020-06-17] MEDS: amLODIPine BESYLATE 5 MG TABLET PO (09:19)
--- NOTE | 2020-06-17 09:35 | WPDNEURORHBP ---
Subjective Date/time seen: 06/17/20 09:35 Interval history: This is a 70-year-old gentleman with past medical history significant for cataracts, treated hepatitis C, prostate cancer, hypertension, diabetes mellitus type 2 who presented to the emergency room in [facility] on 06/05/2020 with onset of right-sided weakness. MRI of the brain demonstrated a left medial pontine infarct. GI outpatient referral with Dr. Andrea Parker is to be arranged after discharge due to transaminitis.Permissive hypertension will be allowed during the early stages of stroke. Patient is a newly diagnosed diabetic. Diabetic training will be ongoing Patient will remain on Plavix and aspirin for 3 weeks and then transition to aspirin alone. Patient voices no complaint. Patient is becoming more aware of his limitation. Patient asks if he can drink alcohol Review of Systems Review of Systems: All systems reviewed & are unremarkable except as noted in HPI and below Functional Status Ambulation Ability Ability to Ambulate 10 Feet: Independent Ability to Ambulate 50 Feet With 2 Turns: Independent Ability to Ambulate 150 Feet: Standby Assistance Ambulation Assistive Devices: Walker, Wheeled Transfers Ability Ability to Transfer In/Out of Chair: Independent Exam Narrative: Exam Narrative: Facial asymmetry is noted extraocular muscles are intact. Neck is supple. Speech is dysarthric. Heart rate and rhythm is regular. Lungs are clear to auscultation. Abdomen is soft nontender. Left upper and left lower extremity strength are 4/5 right upper and right lower extremity strength reveal motor apraxia Right time study engineer strength is improving hemiplegia 3-4/5 strength throughout. More overall control of motor present Speech auditory comprehension is at 83 percent accuracy Patient is independent with [id number] transfers. Patient is able to ambulate 50 ft with 2 turns independently using a front wheel walker. Patient requires standby assistance to ambulate 150 ft. Patient demonstrating more awareness of right hand placement. Patient's overall grasp is limited and showing signs of motor recovery. Motor recovery is improving Objective Data Vital Signs Vital Signs: Vital Signs - 24 hr 06/16/20 14:00 06/16/20 20:53 06/17/20 05:38 Temperature 36.6 C 36.1 C L 35.9 C L Pulse Rate 67 58 L 56 L Respiratory Rate 18 20 18 Blood Pressure 132/59 L 130/57 L 130/69 Pulse Oximetry 99 100 100 06/17/20 09:18 Temperature Pulse Rate 60 Respiratory Rate Blood Pressure Pulse Oximetry Intake/Output Intake/Output: Intake & Output 06/14/20 06/15/20 06/16/20 06/17/20 23:59 23:59 23:59 23:59 Intake Total 720 940 720 240 Balance 720 940 720 240 Meds/Results Medications: Active Medications Generic Name Dose Route Start Last Admin Trade Name Freq PRN Reason Stop Dose Admin Amlodipine Besylate 5 mg 06/08/20 09:00 06/17/20 09:19 Amlodipine Besylate 5 Mg Tablet PO 5 mg DAILY XI Administration Aspirin 325 mg 06/08/20 09:00 06/17/20 09:18 Aspirin 325 Mg Tablet PO 325 mg DAILY XI Administration Clopidogrel Bisulfate 75 mg 06/08/20 09:00 06/17/20 09:18 Clopidogrel Bisulfate 75 Mg Tablet PO 75 mg DAILY XI Administration Dextrose 12.5 gm 06/07/20 20:15 Dextrose 50% 25 Gm/50 Ml Syringe IV PUSH PRN PRN Hypoglycemia Protocol Enoxaparin Sodium 40 mg 06/08/20 09:00 06/17/20 09:18 Enoxaparin 40 Mg/0.4 Ml Syringe SUB-Q 40 mg DAILY XI Administration Finasteride 5 mg 06/08/20 09:00 06/17/20 09:18 Finasteride 5 Mg Tablet PO 5 mg DAILY XI Administration Glucagon 1 mg 06/07/20 20:15 Glucagon For Inj 1 Mg Vial IM PRN PRN Hypoglycemia Protocol Glucose 15 gm 06/07/20 20:15 Glucose Oral Gel 15 Gm Of Glucse In 37.5 Gm Tube PO PRN PRN Hypoglycemia Protocol Dextrose 1,000 mls @ 100 mls/hr 06/07/20 20:15 Dextrose 5% 1,000
[2020-06-17 11:28] LABS: Glucose Point of Care 87 (65-105)
[2020-06-17 14:00] VITALS: BP 129/62; PULSE 72; RESP 18; TEMP 36.5; O2SAT 95
[2020-06-17 16:45] LABS: Glucose Point of Care 96 (65-105)
[2020-06-17 19:50] VITALS: PULSE 79; RESP 18; O2SAT 99
[2020-06-17 19:57] VITALS: BP 148/64; PULSE 79; RESP 18; TEMP 36; O2SAT 99
[2020-06-17 21:38] LABS: Glucose Point of Care 132 (65-105)
[2020-06-18 05:13] VITALS: BP 130/65; PULSE 67; RESP 18; TEMP 36.2; O2SAT 100
[2020-06-18 06:33] LABS: Glucose Point of Care 107 (65-105)
[2020-06-18 09:10] VITALS: PULSE 67
[2020-06-18] MEDS: ASPIRIN 325 MG TABLET PO (09:10)
[2020-06-18] MEDS: NEBIVOLOL HCL 5 MG TABLET 10 MG PO (09:10)
[2020-06-18] MEDS: FINASTERIDE 5 MG TABLET PO (09:10)
[2020-06-18] MEDS: CLOPIDOGREL BISULFATE 75 MG TABLET PO (09:10)
[2020-06-18] MEDS: amLODIPine BESYLATE 5 MG TABLET PO (09:10)
[2020-06-18] MEDS: ENOXAPARIN 40 MG/0.4 ML SYRINGE SUB-Q (09:10)
[2020-06-18 12:05] LABS: Glucose Point of Care 83 (65-105)
--- NOTE | 2020-06-18 13:32 | PCNSR ---
On 06/18/20, the student, Korin Morin, provided care and [facility]. I have reviewed the student's documentation and agree with the findings.
[2020-06-18 14:00] VITALS: BP 132/61; PULSE 73; RESP 18; TEMP 36.4; O2SAT 99
--- NOTE | 2020-06-18 14:37 | WPDNEURORHBP ---
Subjective Date/time seen: 06/18/20 14:37 Interval history: This is a 70-year-old gentleman with past medical history significant for cataracts, treated hepatitis C, prostate cancer, hypertension, diabetes mellitus type 2 who presented to the emergency room in [facility] on 06/05/2020 with onset of right-sided weakness. MRI of the brain demonstrated a left medial pontine infarct. GI outpatient referral with Dr. Andrea Parker is to be arranged after discharge due to transaminitis.Permissive hypertension will be allowed during the early stages of stroke. Patient is a newly diagnosed diabetic. Diabetic training will be ongoing Patient will remain on Plavix and aspirin for 3 weeks and then transition to aspirin alone. Patient is looking forward to discharge and is aware that he will have limitations ( unable to ride tractor or put in a large garden) Review of Systems Review of Systems: All systems reviewed & are unremarkable except as noted in HPI and below Functional Status Ambulation Ability Ability to Ambulate 10 Feet: Independent Ability to Ambulate 50 Feet With 2 Turns: Independent Ability to Ambulate 150 Feet: Independent Ambulation Assistive Devices: Walker, Wheeled Transfers Ability Ability to Transfer In/Out of Chair: Independent Exam Narrative: Exam Narrative: Facial asymmetry is noted extraocular muscles are intact. Neck is supple. Speech is dysarthric. Heart rate and rhythm is regular. Lungs are clear to auscultation. Abdomen is soft nontender. Left upper and left lower extremity strength are 4/5 right upper and right lower extremity strength reveal motor apraxia Right step down specialist strength is improving daily. Patient does not require a hand splint for the walker. Right hemiplegia 3+ to4/5 strength throughout. Patient is independent with a front wheel walker 200 ft. Chair transfers are independent. patient's overall safety is improving Objective Data Vital Signs Vital Signs: Vital Signs - 24 hr 06/17/20 19:50 06/17/20 19:57 06/18/20 05:13 Temperature 36.0 C L 36.2 C L Pulse Rate 79 79 67 Respiratory Rate 18 18 18 Blood Pressure 148/64 H 130/65 Pulse Oximetry 99 99 100 06/18/20 09:10 Temperature Pulse Rate 67 Respiratory Rate Blood Pressure Pulse Oximetry Intake/Output Intake/Output: Intake & Output 06/15/20 06/16/20 06/17/20 06/18/20 23:59 23:59 23:59 23:59 Intake Total 940 720 720 480 Balance 940 720 720 480 Meds/Results Medications: Active Medications Generic Name Dose Route Start Last Admin Trade Name Freq PRN Reason Stop Dose Admin Amlodipine Besylate 5 mg 06/08/20 09:00 06/18/20 09:10 Amlodipine Besylate 5 Mg Tablet PO 5 mg DAILY XI Administration Aspirin 325 mg 06/08/20 09:00 06/18/20 09:10 Aspirin 325 Mg Tablet PO 325 mg DAILY XI Administration Clopidogrel Bisulfate 75 mg 06/08/20 09:00 06/18/20 09:10 Clopidogrel Bisulfate 75 Mg Tablet PO 75 mg DAILY XI Administration Dextrose 12.5 gm 06/07/20 20:15 Dextrose 50% 25 Gm/50 Ml Syringe IV PUSH PRN PRN Hypoglycemia Protocol Enoxaparin Sodium 40 mg 06/08/20 09:00 06/18/20 09:10 Enoxaparin 40 Mg/0.4 Ml Syringe SUB-Q 40 mg DAILY XI Administration Finasteride 5 mg 06/08/20 09:00 06/18/20 09:10 Finasteride 5 Mg Tablet PO 5 mg DAILY XI Administration Glucagon 1 mg 06/07/20 20:15 Glucagon For Inj 1 Mg Vial IM PRN PRN Hypoglycemia Protocol Glucose 15 gm 06/07/20 20:15 Glucose Oral Gel 15 Gm Of Glucse In 37.5 Gm Tube PO PRN PRN Hypoglycemia Protocol Dextrose 1,000 mls @ 100 mls/hr 06/07/20 20:15 Dextrose 5% 1,000 Ml IVPB PRN PRN Hypoglycemia Protocol Insulin Aspart 2 - 5 units 06/09/20 08:00 06/18/20 12:08 Insulin Aspart (*Bkc) 100 Units/Ml SUB-Q Not Given TIDWM XI Protocol Nebivolol 10 mg 06/08/20 09:00 06/18/20 09:10 Nebivolol Hcl 5 Mg
[2020-06-18 17:03] LABS: Glucose Point of Care 105 (65-105)
[2020-06-18 20:35] LABS: Glucose Point of Care 155 (65-105)
[2020-06-18 21:56] VITALS: BP 134/58; PULSE 75; RESP 16; TEMP 36.3; O2SAT 100
[2020-06-19 06:00] VITALS: BP 155/59; PULSE 59; RESP 16; TEMP 36.5; O2SAT 100
[2020-06-19 06:36] LABS: Glucose Point of Care 110 (65-105)
[2020-06-19] MEDS: CLOPIDOGREL BISULFATE 75 MG TABLET PO (08:10)
[2020-06-19 08:50] VITALS: PULSE 62
[2020-06-19] MEDS: ENOXAPARIN 40 MG/0.4 ML SYRINGE SUB-Q (08:50)
[2020-06-19] MEDS: NEBIVOLOL HCL 5 MG TABLET 10 MG PO (08:50)
[2020-06-19] MEDS: ASPIRIN 325 MG TABLET PO (08:51)
[2020-06-19] MEDS: FINASTERIDE 5 MG TABLET PO (08:51)
[2020-06-19] MEDS: amLODIPine BESYLATE 5 MG TABLET PO (08:52)
[2020-06-19 12:03] LABS: Glucose Point of Care 84 (65-105)
[2020-06-19 14:00] VITALS: BP 142/57; PULSE 64; RESP 20; TEMP 36.7; O2SAT 98
--- NOTE | 2020-06-19 15:05 | WPDNEURORHBP ---
Subjective Date/time seen: 06/19/20 15:05 Interval history: This is a 70-year-old gentleman with past medical history significant for cataracts, treated hepatitis C, prostate cancer, hypertension, diabetes mellitus type 2 who presented to the emergency room in [facility] on 06/05/2020 with onset of right-sided weakness. MRI of the brain demonstrated a left medial pontine infarct. GI outpatient referral with Dr. Andrea Parker is to be arranged after discharge due to transaminitis.Permissive hypertension will be allowed during the early stages of stroke. Patient is a newly diagnosed diabetic. Diabetic training will be ongoing Patient will remain on Plavix and aspirin for 3 weeks and then transition to aspirin alone. Patient is looking forward to discharge and is aware that he will have limitations ( unable to ride tractor or put in a large garden) patient and family members were present for team conference today. Patient and family asked appropriate questions in all questions were answered. Review of Systems Review of Systems: All systems reviewed & are unremarkable except as noted in HPI and below Functional Status Ambulation Ability Ability to Ambulate 10 Feet: Independent Ability to Ambulate 50 Feet With 2 Turns: Independent Ability to Ambulate 150 Feet: Independent Ambulation Assistive Devices: Walker, Wheeled Transfers Ability Ability to Transfer In/Out of Chair: Independent Exam Narrative: Exam Narrative: Facial asymmetry is noted extraocular muscles are intact. Neck is supple. Speech is dysarthric. Heart rate and rhythm is regular. Lungs are clear to auscultation. Abdomen is soft nontender. Left upper and left lower extremity strength are 4/5 right upper and right lower extremity strength reveal motor apraxia Right die sizer strength is improving daily. Patient does not require a hand splint for the walker. Right hemiplegia 3+ to4/5 strength throughout. Patient is independent with a front wheel walker 200 ft. Chair transfers are independent. patient's overall safety is improving Objective Data Vital Signs Vital Signs: Vital Signs - 24 hr 06/18/20 21:56 06/19/20 06:00 06/19/20 08:50 Temperature 36.3 C L 36.5 C Pulse Rate 75 59 L 62 Respiratory Rate 16 16 Blood Pressure 134/58 L 155/59 H Pulse Oximetry 100 100 06/19/20 14:00 Temperature 36.7 C Pulse Rate 64 Respiratory Rate 20 Blood Pressure 142/57 H Pulse Oximetry 98 Intake/Output Intake/Output: Intake & Output 06/16/20 06/17/20 06/18/20 06/19/20 23:59 23:59 23:59 23:59 Intake Total 720 720 720 480 Balance 720 720 720 480 Meds/Results Medications: Active Medications Generic Name Dose Route Start Last Admin Trade Name Freq PRN Reason Stop Dose Admin Amlodipine Besylate 5 mg 06/08/20 09:00 06/19/20 08:52 Amlodipine Besylate 5 Mg Tablet PO 5 mg DAILY XI Administration Aspirin 325 mg 06/08/20 09:00 06/19/20 08:51 Aspirin 325 Mg Tablet PO 325 mg DAILY XI Administration Clopidogrel Bisulfate 75 mg 06/08/20 09:00 06/19/20 08:10 Clopidogrel Bisulfate 75 Mg Tablet PO 75 mg DAILY XI Administration Dextrose 12.5 gm 06/07/20 20:15 Dextrose 50% 25 Gm/50 Ml Syringe IV PUSH PRN PRN Hypoglycemia Protocol Enoxaparin Sodium 40 mg 06/08/20 09:00 06/19/20 08:50 Enoxaparin 40 Mg/0.4 Ml Syringe SUB-Q 40 mg DAILY XI Administration Finasteride 5 mg 06/08/20 09:00 06/19/20 08:51 Finasteride 5 Mg Tablet PO 5 mg DAILY XI Administration Glucagon 1 mg 06/07/20 20:15 Glucagon For Inj 1 Mg Vial IM PRN PRN Hypoglycemia Protocol Glucose 15 gm 06/07/20 20:15 Glucose Oral Gel 15 Gm Of Glucse In 37.5 Gm Tube PO PRN PRN Hypoglycemia Protocol Dextrose 1,000 mls @ 100 mls/hr 06/07/20 20:15 Dextrose 5% 1,000 Ml IVPB PRN PRN Hypoglycemia Protocol Insulin Aspart 2 - 5 units 06/09/20 08:00 06/19/20
[2020-06-19 17:13] LABS: Glucose Point of Care 115 (65-105)
[2020-06-19 20:00] VITALS: PULSE 62; RESP 16; O2SAT 100
[2020-06-19 20:30] VITALS: BP 142/70; PULSE 62; RESP 16; TEMP 36.3; O2SAT 100
[2020-06-19 20:40] LABS: Glucose Point of Care 144 (65-105)
[2020-06-19 22:00] VITALS: BP 142/70; PULSE 62; RESP 16; TEMP 36.3; O2SAT 100
[2020-06-20 06:00] VITALS: BP 155/69; PULSE 59; RESP 16; TEMP 36.2; O2SAT 100
[2020-06-20 06:14] LABS: Glucose Point of Care 85 (65-105)
[2020-06-20 08:52] VITALS: PULSE 62
[2020-06-20] MEDS: FINASTERIDE 5 MG TABLET PO (08:52)
[2020-06-20] MEDS: NEBIVOLOL HCL 5 MG TABLET 10 MG PO (08:52)
[2020-06-20] MEDS: amLODIPine BESYLATE 5 MG TABLET PO (08:53)
[2020-06-20] MEDS: ASPIRIN 325 MG TABLET PO (08:53)
[2020-06-20] MEDS: CLOPIDOGREL BISULFATE 75 MG TABLET PO (08:53)
[2020-06-20] MEDS: ENOXAPARIN 40 MG/0.4 ML SYRINGE SUB-Q (08:53)
--- NOTE | 2020-06-20 15:51 | PM.DS ---
DS: Admitting Diagnosis Admitting Diagnosis Admitting Diagnosis: Left medial pontine infarct. DS: Discharge Diagnosis Discharge Diagnosis (1) CVA (cerebral vascular accident): Code(s): I63.9 - Cerebral infarction, unspecified Status: Acute Assessment and Plan: Plavix and aspirin will continue for 3 weeks. Then patient will be transitioned to aspirin alone. (2) New onset type 2 diabetes mellitus: Code(s): E11.9 - Type 2 diabetes mellitus without complications Status: Acute Assessment and Plan: Patient is on Januvia and sliding scale. Diabetic education and training will be ongoing (3) Prostate cancer: Code(s): C61 - Malignant neoplasm of prostate Status: Acute Assessment and Plan: monitoring (4) Hepatitis C: Code(s): B19.20 - Unspecified viral hepatitis C without hepatic coma Status: Acute Assessment and Plan: ongoing monitoring of liver enzymes is noted. Follow-up will be with the clinic after discharge (5) Hypertension: Code(s): I10 - Essential (primary) hypertension Status: Acute Assessment and Plan: patient is allowed permissive blood pressure parameters. Will continue to follow. DS: Summary Hospital Course Hospital Course: Chief Complaint: Left medial pontine infarct Narrative: this is a 70-year-old male with past medical history significant for cataracts, treated hepatitis-C, prostate cancer, hypertension, diabetes mellitus type 2 presented to the emergency room at [facility] on 06/05/2020 with sudden onset of right leg weakness and bladder incontinence. CT of the head was negative for acute intracranial pathology the patient presented out of the window for tPA. NIH SS was 3 so he was not a thrombectomy candidate. MRI of the brain demonstrated a left medial pontine infarct. Hospital course patient had elevated liver enzymes, hypertension and diabetes. The elevated liver enzymes are being monitored and patient has a GI outpatient referral with Dr Andrea Parker. antihypertensives were held to allow for permissive hypertension. Diabetes was treated with a sliding scale insulin and change to dose of Januvia. Physical exam revealed right hemiplegia right motor apraxia dysarthria right facial droop. Patient was started on aspirin and Plavix. Statin was not initiated due to liver disease/ transaminitis. Patient will remain on aspirin and Plavix for 3 weeks and then transition to just aspirin. Patient will transition to ASA only within one week. Patient remained medically stable throughout the rehab course. Patient was started on Januvia with blood sugars approaching normal. Patient was instructed to see his primary care physician to determine if Januvia is required for long-term. Patient has significant motor recovery to the right side with ongoing motor apraxia. At time of discharge patient was independent with ADLs transfers and gait using adaptive equipment. Patient will be receiving home health versus outpatient PT OT speech. Discharge meds were reviewed with patient. ADMISSION FUNCTION: Eating was independent Oral Care was partial to moderate assist Toileting Hygiene was partial to moderate assist Shower/Bathing was partial to moderate assist Upper Body Dressing was partial to moderate assist Lower Body Dressing was partial to moderate assist Donning/[place] Footwear was partial to moderate assist Rolling Left and Right was partial to moderate assist Sit to Lying was partial to moderate assist Lying to Sitting was partial to moderate assistance Sit to Stand was partial to moderate assistance Bed to Chair Transfers were partial to moderate assistance Toilet Transfers were partial to moderate assistance Walking was 100 ft with a cane at partial to moderate assistance Wheelchair Mobility was not tested Stairs were not tested GOALS: Eating [INDEPENDENT] Oral Care [
== END 2020-06-20 10:50 | disposition home health service (06) | DRG 57 ==
PROVIDERS: Admitting Provider Physical Medicine & Rehabilitation; PCP Internal Medicine; Visit Provider Physical Medicine & Rehabilitation
DX: I69.351 Hemiplegia and hemiparesis following cerebral infarction affecting right dominant side (principal); I69.322 Dysarthria following cerebral infarction; I69.392 Facial weakness following cerebral infarction; R74.01 Elevation of levels of liver transaminase levels; B19.20 Unspecified viral hepatitis C without hepatic coma; E11.9 Type 2 diabetes mellitus without complications; I10 Essential (primary) hypertension; Z96.652 Presence of left artificial knee joint; Z79.84 Long term (current) use of oral hypoglycemic drugs; Z85.46 Personal history of malignant neoplasm of prostate
CPT/HCPCS: 36415; 80048; 80053; 80061; 82948; 83036; 85025; 92507; 92523; 97110; 97112; 97116; 97129; 97130; 97161; 97165; 97530; 97535; A9270; J1650; J1815